=== PATIENT | female | born 1985 | race Caucasian/White ===

== ENCOUNTER → 2023-08-29 13:25 | Outpatient (REF) | payer BC, SELFPAY | LOC: PNTC 13:25 | PROVIDERS: ATTENDING PHYSICIAN Obstetrics & Gynecology | DX: O09.529 Supervision of elderly multigravida, unspecified trimester (principal); O44.00 Complete placenta previa NOS or without hemorrhage, unspecified trimester | CPT/HCPCS: 76811; 76817 ==

== ENCOUNTER 2024-01-04 03:26 | Inpatient (IN) | payer OTHER, SELFPAY ==
[2024-01-04] MEDS: LR 1000 IV (03:45)
[2024-01-04 03:46] VITALS: BP 127/60; BMI 27.1
[2024-01-04 04:05] LABS: % Basophils 0.6 % (0-2); % Eosinophils 0.8 % (0-6); % Immature Granulocytes 0.9 % (0-0.5); % Lymphocytes 26.4 % (20.5-51.1); % Monocytes 8.4 % (1.7-9.3); % Neutrophils 62.9 % (42.2-75.2); Absolute Basophils 0.1 10^3/uL (0-0.2); Absolute Eosinophils 0.1 10^3/uL (0-0.7); Absolute Immature Granulocytes 0.1 10^3/uL (0-0.05); Absolute Lymphocytes 3.4 10^3/uL (1.2-3.4); Absolute Monocytes 1.1 10^3/uL (0.1-0.6); Hematocrit 36.3 % (37.0-47.0); Mean Corp Hgb Conc. 33.1 g/dL (33.0-37.0); Mean Corpuscular Hgb 26.8 pg (27.0-31.0); Mean Platelet Volume 9.4 fL (7.4-10.4); Nucleated Red Blood Cells % 0 %; Platelet Count 331 10^3/uL (130-400); Red Blood Cell Count 4.48 10^6/uL (4.20-5.40); Red Cell Dist. Width 14.6 % (11.5-14.5); White Blood Cell Count 12.7 10^3/uL (4.8-10.8)
[2024-01-04] MEDS: FENTANYL/BUPIVACAINE 100 EPIDURAL (04:41)
[2024-01-04] MEDS: SUBLIMAZE 100 MCG EPIDURAL (04:41)
[2024-01-04] MEDS: TYLENOL 650 MG PO (21:10)
[2024-01-05 04:23] LABS: Hematocrit 32.5 % (37.0-47.0); Hemoglobin 10.6 g/dL (12.0-16.0)
[2024-01-05] MEDS: SENOKOT-S 1 TABLET PO (08:31)
[2024-01-05] MEDS: PRENATAL PLUS 1 TABLET PO (08:31)
[2024-01-05] MEDS: MOTRIN 600 MG PO (08:32)
[2024-01-05 16:08] LABS: Syphilis/T. pallidum Ab Reflex Negative (Negative)
== END 2024-01-05 12:17 | disposition home or self-care (01) | DRG 807 ==
LOC: LDRP 03:26
PROVIDERS: Obstetrics & Gynecology; ADMITTING PHYSICIAN Obstetrics & Gynecology; FAMILY PHYSICIAN Emergency Medicine
PROC: 10E0XZZ Delivery of Products of Conception, External Approach (ICD-10-PCS; 2024-01-04)
PROC: 0KQM0ZZ Repair Perineum Muscle, Open Approach (ICD-10-PCS; 2024-01-04)
DX: O66.0 Obstructed labor due to shoulder dystocia (principal); Z37.0 Single live birth; Z3A.39 39 weeks gestation of pregnancy; O70.1 Second degree perineal laceration during delivery
CPT/HCPCS: 36415; 85014; 85018; 85025; 86780; 86850; 86900; 86901